=== PATIENT | male | born 1990 | race African-American/Black ===

== ENCOUNTER 2016-05-03 21:10 | Emergency (ER) | payer OTHER, MEDICAID ==
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
== END 2016-05-03 22:21 | disposition home or self-care (01) ==
LOC: SED 21:10
DX: S39.012A Strain of muscle, fascia and tendon of lower back, initial encounter (principal); F17.210 Nicotine dependence, cigarettes, uncomplicated; V49.40XA Driver injured in collision with unspecified motor vehicles in traffic accident, initial encounter
CPT/HCPCS: 72100; 99283